=== PATIENT | male | born 1970 | race African-American/Black ===

== ENCOUNTER → 2016-12-09 | Outpatient (CLI) | payer OTHER ==
--- NOTE | 2016-12-10 02:22 | REP ---
Clinical: Right clavicular and chest pain . Comparison: None . Technique: PA and lateral. Findings: The mediastinum and cardiac silhouette are normal. The lung chen are clear and without acute consolidation or pneumothorax. Subtle blunting to the costophrenic angles may reflect small acute versus chronic pleural reactions. The skeletal structures are intact and normal. Impression: Blunting to the costophrenic angles on frontal radiograph may reflect acute versus chronic pleural reaction. No further acute mediastinal or pleuroparenchymal process identified. Signed by Juancho Miller MD 12/10/2016 02:15 A
--- NOTE | 2016-12-10 03:01 | REP ---
Clinical: Right clavicular and right chest pain. Technique: AP and axial views of the right clavicle. Findings: Very subtle degenerative changes at the acromioclavicular joint include cortical irregularity and fraying. Small inferior osteophytes forming along the distal acromion cannot be excluded. No periarticular calcifications. The glenohumeral joint is intact. Impression: Subtle irregularity to the acromioclavicular joint may reflect mild degenerative changes. Signed by Juancho Miller MD 12/10/2016 02:52 A
== END ==
LOC: M RAD 09:11
PROVIDERS: ATTEND Surgery
DX: R07.9 Chest pain, unspecified (principal)

== ENCOUNTER → 2017-01-23 | Outpatient (CLI) | payer OTHER ==
--- NOTE | 2017-01-23 11:00 | REP ---
Chest x-ray: Two views. History: Pleural reaction . Comparison study: December 09, 2016 showed some blunting of the right lateral costophrenic angle. . Findings: The lungs are well inflated and free of infiltrate. The pleural angles are sharp. The heart size is normal. Pulmonary vasculature is not increased. No significant bony abnormality is seen. The pleural angles are sharp and improved on today's radiograph. Impression: Negative chest x-ray. Signed by Mesfin Taylor MD 01/23/2017 10:51 A
== END ==
LOC: M RAD 09:28
PROVIDERS: ATTEND Surgery
DX: R91.8 Other nonspecific abnormal finding of lung field (principal)

== ENCOUNTER → 2017-05-21 | Outpatient (CLI) | payer OTHER ==
--- NOTE | 2017-05-21 10:26 | REP ---
The index finger series: Four views. History: Jamming injury left second digit. Findings: Four views of the index finger demonstrate soft tissues swelling about the PIP joint. A volar plate avulsion chip fracture is seen on lateral radiograph nondisplaced. No other fracture is seen. Impression: Volar plate avulsion chip fracture from the base of the middle phalanx at the PIP joint of the index finger. Nondisplaced. Signed by Mesfin Taylor MD 05/21/2017 10:17 A
== END ==
LOC: M RAD 09:20
PROVIDERS: ATTEND Surgery
DX: S63.281A Dislocation of proximal interphalangeal joint of left index finger, initial encounter (principal); X58.XXXA Exposure to other specified factors, initial encounter; Y92.89 Other specified places as the place of occurrence of the external cause; Y93.89 Activity, other specified; Y99.8 Other external cause status